=== PATIENT | female | born 1970 | race Caucasian/White ===

== ENCOUNTER 2021-02-21 12:42 | Inpatient (IN) ==
[2021-02-21] MEDS ORDERED: SODIUM CHLORIDE 0.9% 1000ML 1,000 ML IV ONE (14:45)
[2021-02-21] MEDS ORDERED: dexAMETHasone 6 MG in SYRINGE 0 ML IV ONE (15:48)
[2021-02-21 15:50] LABS: Hematocrit (blood only) 37.6 % (37-47); Hemoglobin 13.3 g/dL (12.0-16.0); Immature Granulocytes # (auto) 0.04 K/uL (0.00-0.02); Immature Granulocytes % (auto) 0.4 %; Lymphocytes # (auto) 0.67 K/uL (1.2-3.4); Lymphocytes % (auto) 7.1 %; Mean Corpuscular Hemoglobin 30.8 pg (25-34); Mean Corpuscular Hgb Conc 35.4 g/dL (32-36); Mean Platelet Volume 9.5 fL (7.4-10.4); Monocytes # (auto) 0.47 K/uL (0.11-0.59); Neutrophils # (auto) 8.29 K/uL (1.4-6.5); Neutrophils % (auto) 87.5 %; Platelet Count 429 K/uL (130-400); RDW Coefficient of Variation 12.9 % (11.5-14.5); RDW Standard Deviation 42.1 fL (36.4-46.3); Red Blood Count 4.32 M/uL (4.2-5.4); White Blood Count 9.47 K/uL (4.8-10.8)
--- NOTE | 2021-02-21 15:54 | XRay Report ---
XR chest 1V portable HISTORY: SEPSIS COMPARISON: Chest 02/19/2021. FINDINGS: No pneumothorax. No pleural effusions. The cardiac silhouette remains normal in size. Multi focal irregular airspace opacities and interstitial thickening remain unchanged. This suggests a mult ifocal viral pneumonia. IMPRESSION: No change in the interstitial thickening multifocal irregular airspace opacities. This favors a viral pneumonia. ACT 112: Negative or not required by law. Electronically signed by: Berlin Shah M.D. 02/21/2021 3:52 PM
[2021-02-21 16:00] LABS: Partial Thromboplastin Time 25.1 Seconds (21.0-31.0); Prothrombin Time 10.2 Seconds (9.0-12.0)
[2021-02-21 16:09] LABS: Alanine Aminotransferase 22 U/L (12-78); Albumin Level 2.8 gm/dl (3.4-5.0); Aspartate Aminotransferase 17 U/L (15-37); Blood Urea Nitrogen 12 mg/dl (7-18); Calcium 8.5 mg/dl (8.5-10.1); Carbon Dioxide 28 mmol/L (21-32); Chloride 102 mmol/L (98-107); Creatinine Clr Calc Pharmacy 92.4 ml/min; Est GFR (African American) 112.1; Est GFR (Non-African American) 96.7; Glucose 156 mg/dl (70-99); Magnesium 2.5 mg/dl (1.8-2.4); Potassium 3.6 mmol/L (3.5-5.1); Sodium 137 mmol/L (136-145)
[2021-02-21 16:18] LABS: Albumin Globulin Ratio 0.5 (0.9-2); Alkaline Phosphatase 64 U/L (45-117); Bilirubin,Total 0.7 mg/dl (0.2-1); Globulin 5.6 gm/dl (2.5-4.0); NT Pro B Type Natriuretic Pept 349 pg/ml (0-450); Total Protein 8.4 gm/dl (6.4-8.2); Troponin I < 0.015 ng/ml (0-0.045)
[2021-02-21] MEDS ORDERED: DEXAMETHASONE SOD INJ 4 MG/ML VIAL ONE (16:46)
--- NOTE | 2021-02-21 17:03 | CT Scan Report ---
CT ANGIOGRAPHY OF THE CHEST, PULMONARY EMBOLUS PROTOCOL CLINICAL HISTORY: Cough. Covid. COMPARISON STUDY: Chest radiograph February 21, 2021. TECHNIQUE: Following IV administration of 103 mL of Optiray, helical axial images of the chest were o btained utilizing the pulmonary embolus protocol. Maximal intensity projections and sagittal and cor onal reformats were viewed on an independent 3D workstation. IV contrast was administered without co mplication. Automated exposure control was utilized for the study. A dose lowering technique was ut ilized adhering to the principles of ALARA. CT DOSE: 462.16 mGycm FINDINGS: Extensive bilateral pulmonary emboli are noted, including emboli within the distal left pu lmonary artery extending into the left lower lobe pulmonary artery as well as the segmental branches of the left lower lobe. Multiple segmental right lower lobe pulmonary emboli are noted. Size of the h eart is normal. There is no pericardial effusion. No enlarged thoracic lymph nodes are present. There is no pneumothorax or pleural effusion. Moderate left lower lobe consolidation is noted. Extensive g roundglass opacities within the lungs are noted. There is mild interlobular septal thickening. Lungs are suboptimally assessed due to respiratory motion. Mild splenomegaly is noted. There is hepatic vivian atosis. IMPRESSION: 1. Moderate to extensive bilateral pulmonary emboli, including emboli within the distal left pulmonar y artery extending into the left lower lobe pulmonary artery and multiple segmental right lower lobe pulmonary emboli. 2. Moderate left lower lobe consolidation and extensive groundglass opacities within remainder of the lungs suggestive of viral pneumonia. 3. Hepatic steatosis. 4. Splenomegaly. ACT 112: Negative or not required by law. Electronically signed by: Adrian Polo M.D. 02/21/2021 5:02 PM
[2021-02-21] MEDS ORDERED: Heparin IV Adult Wt-Based Standard WITH Bolus Protocol IV STA (17:36)
[2021-02-21] MEDS ORDERED: HEPARIN SOD (PORCINE) 1000 UNIT/ML IV ONE (17:52)
[2021-02-21] MEDS: HEPARIN SODIUM/DEXTROSE 25,000 UNITS/500 ML BAG IV SCH (18:00)
[2021-02-21] MEDS ORDERED: PIPERACILL/TAZOBAC CONSULT ACTIVE PRN (18:38)
[2021-02-21] MEDS ORDERED: VANCOMYCIN CONSULT ACTIVE PRN (18:41)
[2021-02-21] MEDS ORDERED: VANCOMYCIN HCL 1,250 MG in SODIUM CHLORIDE 0.9% 500 ML IV SCH (18:45)
--- NOTE | 2021-02-21 19:10 | History & Physical Report ---
Date of Service February 21, 2021 Assessment & Plan (1) Pneumonia due to 2019 novel coronavirus: previously healthy 50 yo F presents 15 days after symptoms developed and 13 days after diagnosis of COVID-19 with 3 days of dyspnea and found to have a PE - admitted to PCU w/ precautions Pulmonary embolism CTA chest with mod-extensive bilateral PE including emboli of distal left pulmonary artery, moderate left lower lobe consolidations, normal heart size PESI 49 points class I very low risk, initial INR 1 EKG with incomplete RBBB, unchanged from prior - Heparin with bolus - continue to monitor for complications of PE - ECHO ordered COVID-19 infection saturation 96% on room air, afebrile, BP 169/85 - Dexamethasone 6mg QAM - Vit D daily - Zinc sulfate daily - oxygen as needed, CPAP as needed - Guaifenesin for cough - Duoneb prn - Albuterol available Secondary HAP procalcitonin negative, consolidation on CT, recent ER admission - started Vancomycin and Zosyn Hepatic steatosis seen on CTA chest - will require further outpatient evaluation Code: full Diet: regular DVT: Heparin History of Present Illness Chief Complaint: trouble breathing Primary Care Provider: DO Nguyen Jacobsen is here for trouble breathing. She developed symptoms on February 05 and tested positive for COVID-19 on the . She was seen in the ER on the and given a prescription of Dexamethasone that she started on the . She has continued to have trouble breathing that has been stable since Friday but has not improved. She has had her oxygen saturation dip as low as 76% while walking to the bathroom. She also noted pain in her shoulders and low back along with chest discomfort with deep breaths. She has also been using her alb uterol inhaler every 6 hours. She is otherwise healthy and has no known medical conditions and takes no medications prior to this illness. She was attempting to set up with a primary care provider through [facility]. She lives at home with her and 18 and 21 year old sons. She denies tobacco, ETOH and substance use. Allergies Allergy/AdvReac Type Severity Reaction Status Date / Time No Known Allergies Allergy Unverified 02/21/21 15:09 Home Medications Medication Instructions Recorded Confirmed Type albuterol sulfate 2 inh INHALATION Q6H PRN #8.5 g 02/19/21 02/21/21 Rx dexamethasone 6 mg PO DAILY #6 tab 02/19/21 02/21/21 Rx rivaroxaban [Xarelto] 15 mg PO BID 21 Days #42 tab 02/22/21 Rx rivaroxaban [Xarelto] 20 mg PO DAILY #30 tab 02/22/21 Rx Past Med/Surg History Medical History No pertinent family history Pneumonia due to 2019 novel coronavirus Surgical History No pertinent past surgical history Social History Smoking Status: Never smoker Second Hand Exposure: No; Do You Dip or Chew Tobacco: No; Tobacco Cessation Education Requested by Patient: No Hx Alcohol Use: No Hx Substance Use: No Preferred Language: Bhutanese Communication Ability: Effective 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 Beliefs That Will Affect Care: None Current Living Situation: Spouse and Family Other Information That Helps Us Care for You: No Feels Safe at Home: Yes Safety Concerns: Feels Safe At This Time Assistive Devices: Oxygen - Continuous Review of Systems Review of Systems: Constitutional: denies fevers, nausea, vomiting, diaphoresis, night sweats, weight change admits chills, fatigue, and general weakness Head: denies trauma, LOC, vision changes admits headache Neurologic: denies syncope, slurring speech, focal weakness, dysphagia ENT: admits rhinorrhea Cardiac: denies leg edema Pulm: admits pleuritic chest pain, cough GI: denies constipation, diarrhea : denies dysuria, urgency, polyuria Physical Exam Constitutional: well developed and well nourished; no acute distress Eyes: PERRL, conjunctivae normal, anicteric sclerae ENMT: external ear and nose normal, oropharynx normal Neck: normal visual inspection Respiratory: - able to speak in 3-5 word sentences - labored breathing, tachypnea - lungs clear to auscultation with no focal findings on exam Cardiovascular: RRR, no murmur, no edema Gastrointestinal (Abdomen): Inspection/Auscultation: abdomen normal to inspection; abdomen not distended Percussion/Palpation: abdomen soft; abdomen nontender, no guarding and abdomen not rigid Skin: no rashes, warm and dry Neurologic: no focal motor deficits Speech / Cognition: normal speech Psychiatric: Orientation: alert and oriented x 3 Eye Contact: good eye contact Affect: + anxious affect Results & Data Results & Data ([facility]) Vital Signs (Past 12 Hours) Vital Signs Temp Pulse Pulse Resp Resp BP Pulse Ox 02/21/21 18:31 64 24 169/85 H 96 02/21/21 18:30 54 L 27 H 95 02/21/21 18:01 76 29 H 97 02/21/21 18:00 72 23 145/102 H 98 02/21/21 17:31 28 H 97 02/21/21 17:30 25 H 139/99 95 02/21/21 17:01 22 97 02/21/21 17:00 20 132/86 96 02/21/21 15:44 100 H 26 H 02/21/21 12:45 36.5 C 90 16 95 Pulse Ox 02/21/21 18:31 02/21/21 18:30 02/21/21 18:01 02/21/21 18:00 02/21/21 17:31 02/21/21 17:30 02/21/21 17:01 02/21/21 17:00 02/21/21 15:44 88 L 02/21/21 12:45 CBC Results Results Complete Blood Count Results: RBC 4.32 M/uL (4.2-5.4) 02/21/21 WBC 9.47 K/uL (4.8-10.8) 02/21/21 Hgb 13.3 g/dL (12.0-16.0) 02/21/21 Hct 37.6 % (37-47) 02/21/21 Plt Count 429 K/uL (130-400) H 02/21/21 Chemistry (BMP) Results BMP Results: Sodium 137 mmol/L (136-145) 02/21/21 Potassium 3.6 mmol/L (3.5-5.1) 02/21/21 Chloride 102 mmol/L (98-107) 02/21/21 BUN 12 mg/dl (7-18) 02/21/21 Creatinine 0.74 mg/dl (0.6-1.2) 02/22/21 Glucose 156 mg/dl (70-99) H 04/28/21 Code Status & VTE Plan VTE Prophylaxis Plan VTE Prophylaxis will be ordered: Yes Supervising Physician Co-Signing Physician Notes Attending addendum: I have physically seen this patient, have supervised the medical residents activities, and agree with the H&P unless as otherwise noted. Assessment and Plan: Multifocal pneumonia due to COVID-19 virus with hypoxia- Consolidation left lower lobe Likely secondary bacterial component as well Placed on dexamethasone 6 mg IV every morning, Vancomycin IV and Zosyn IV per pharmacokinetic monitoring vitamin D 5000 international units IV p.o. daily Zinc sulfate turn 20 mg p.o. daily Oxygen titration goal approximately 94 to 95% Ventolin HFA 2 puffs every 2 hours as needed DuoNebs every 4 hours as needed Pulmonary embolism/moderately extensive bilaterally- Continue heparin drip per protocol Order complete echocardiogram Remaining orders and notations as noted Resident Activity Tracking Resident Involvement: Resident Care Provided Care Provided: Adult Hospital Medicine
[2021-02-21 20:16] LABS: Influenza A virus by PCR Negative (Neg); Influenza B virus by PCR Negative (Neg); RSV by PCR Negative (Neg)
[2021-02-21 20:38] LABS: SARS CoV2 RNA(COVID-19) InHosp POSITIVE (Negative)
[2021-02-21] MEDS ORDERED: guaiFENesin SUGAR FREE 100 MG/5 ML UDC PO PRN (22:08)
[2021-02-21] MEDS ORDERED: ALBUTEROL HFA 8 GM INHALER INH PRN (22:08)
[2021-02-21] MEDS ORDERED: ACETAMINOPHEN 325 MG TAB PO PRN (22:08)
[2021-02-21] MEDS ORDERED: POLYETHYLENE (MIRALAX) 17 GM PACK PO PRN (22:08)
[2021-02-21] MEDS ORDERED: ALBUT/IPRATROP 3MG/0.5MG NEB 3 ML VIAL NEB PRN (22:08)
[2021-02-21] MEDS ORDERED: VANCOMYCIN HCL 1,750 MG in SODIUM CHLORIDE 0.9% 500 ML IV ONE (22:30)
[2021-02-21] MEDS: Heparin IV Adult Wt-Based Standard WITH Bolus Protocol IV SCH ×3 (22:34→23:45)
[2021-02-21] MEDS: ZINC SULFATE 220 MG CAPSULE PO SCH (22:49)
--- NOTE | 2021-02-21 23:10 | Emergency Department Note ---
History of Present Illness General Chief Complaint: Shortness of Breath/Dyspnea Stated Complaint: sob, covid+ Time Seen by Provider: 02/21/21 14:45 History of Present Illness Provider Complaint: shortness of breath Onset (ago): week(s) (2) Severity: severe Consistency/Duration: + progressively worsening Maximum Pain Intensity: 3 Current Pain Intensity: 3 Relieved By: + rest Exacerbated By: + exertion and + coughing Context: + recent illness (Tested positive for COVID-19 on February 08, 2021) Associated symptoms: + chest pain, + pain with inspiration, + fever, + cough, + sputum production, + palpitations, + hemoptysis, + nausea/vomiting, + dizziness and + lightheadedness HPI Narrative: Patient states that she was seen in the emergency department yesterday and discharged with a home pulse oximeter. Patient states that when she walks around her home pulse oximeter goes down into the 70s. Patient states she started coughing up blood today. She states she was instructed to come back to the emergency department. Home Medications Medication Instructions Recorded Confirmed Type albuterol sulfate 2 inh INHALATION Q6H PRN #8.5 g 02/19/21 02/21/21 Rx dexamethasone 6 mg PO DAILY #6 tab 02/19/21 02/21/21 Rx Allergies Allergy/AdvReac Type Severity Reaction Status Date / Time No Known Allergies Allergy Unverified 02/21/21 15:09 Past Med/Surg History Medical History (Updated 02/21/21 @ 23:11 by Boris Alberto) No pertinent family history Pneumonia due to 2019 novel coronavirus Surgical History (Updated 02/21/21 @ 23:05 by Boris Alberto) No pertinent past surgical history Social History Smoking Status: Never smoker Second Hand Exposure: No; Do You Dip or Chew Tobacco: No; Tobacco Cessation Education Requested by Patient: No Hx Alcohol Use: No Hx Substance Use: No Preferred Language: [place] Communication Ability: Effective Train Braker Required: No Beliefs That Will Affect Care: None Current Living Situation: Spouse and Family Other Information That Helps Us Care for You: No Feels Safe at Home: Yes Safety Concerns: Feels Safe At This Time Review of Systems A total of 10 systems reviewed and were otherwise negative Physical Exam Vital Signs: Vital Signs - 24 hr 02/21/21 12:45 02/21/21 15:44 02/21/21 17:00 Temperature 36.5 C Temperature Source Oral Pulse Rate 90 Pulse Rate [Exerci ses] 100 H Pulse Rate from Sp O2 Sensor 72 Pulse Rhythm Regular Pulse Strength Normal Respiratory Rate 16 20 Respiratory Rate [ Exercises] 26 H Respiratory Effort / Characteristics Non-Labored Respiratory Depth Normal Respiratory Patter n Regular Blood Pressure 132/86 Blood Pressure Kavita n 101 Blood Pressure Pos ition Sitting Pulse Oximetry 95 96 Pulse Oximetry [Ex ercises] 88 L Oxygen Delivery Me thod Room Air Room Air Sepsis Recent Feve r Within 48 Hours No Sepsis New/Unexpla ined Change in Men catracho Status N/A Sepsis Action Take n by Nursing No Action Required 02/21/21 17:01 02/21/21 17:30 02/21/21 17:31 Temperature Temperature Source Pulse Rate Pulse Rate [Exerci ses] Pulse Rate from Sp O2 Sensor 79 69 69 Pulse Rhythm Pulse Strength Respiratory Rate 22 25 H 28 H Respiratory Rate [ Exercises] Respiratory Effort / Characteristics Respiratory Depth Respiratory Patter n Blood Pressure 139/99 Blood Pressure Kavita n 112 Blood Pressure Pos ition Pulse Oximetry 97 95 97 Pulse Oximetry [Ex ercises] Oxygen Delivery Me thod Sepsis Recent Feve r Within 48 Hours Sepsis New/Unexpla ined Change in Men catracho Status Sepsis Action Take n by Nursing 02/21/21 18:00 02/21/21 18:01 Temperature Temperature Source Pulse Rate 72 76 Pulse Rate [Exerci ses] Pulse Rate from Sp O2 Sensor 71 76 Pulse Rhythm Pulse Strength Respiratory Rate 23 29 H Respiratory Rate [ Exercises] Respiratory Effort / Characteristics Respiratory Depth Respiratory Patter n Blood Pressure 145/102 H Blood Pressure Kavita n 116 Blood Pressure Pos ition Pulse Oximetry 98 97 Pulse Oximetry [Ex ercises] Oxygen Delivery Me thod Sepsis Recent Feve r Within 48 Hours Sepsis New/Unexpla ined Change in Men catracho Status Sepsis Action Take n by Nursing Physical Exam: Physical Exam GENERAL: She is oriented to person, place, and time. She appears well-developed and well-nourished. She does not appear distressed. HENT: Exam performed. -Head: Normocephalic and atraumatic. -Right Ear: External ear normal. No mastoid tenderness. -Left Ear: External ear normal. No mastoid tenderness. -Mouth/Throat: The oropharynx is clear and moist. No trismus in the jaw. No dental abscesses or uvula swelling. No oropharyngeal exudate or tonsillar abscesses. EYES: Conjunctivae and EOM are normal. Pupils are equal, round, and reactive to light. Right eye exhibits no discharge. Left eye exhibits no discharge. No scleral icterus. NECK: Normal range of motion. Neck supple. No JVD present. No spinous process tenderness present. No carotid bruit present. No rigidity. No tracheal deviation and normal range of motion present. No Brudzinski's sign and no Kernig's sign noted. CV: Normal rate, regular rhythm, normal heart sounds and intact distal pulses. There is no peripheral edema. Palpable radial pulses bue. PULM/CHEST: Rhonchi bilaterally. ABD: The abdomen is soft. Bowel sounds are normal. She has no distension. No mass is present. There is no tenderness. There is no rebound, no guarding, no Wood's sign and no tenderness at McBurney's point. Rovsig negative MUSC/SKEL: Normal range of motion. There is no peripheral edema, tenderness or deformity. LYMPH: No cervical adenopathy. NEURO: She is alert and oriented to person, place, and time. She has normal strength. No cranial nerve deficit or sensory deficit. Coordination and gait normal. GCS eye subscore is 4. GCS verbal subscore is 5. GCS motor subscore is 6. Cerebellar tests wnl. SKIN: Skin is warm and dry. She is not diaphoretic. PSYCH: She has a normal mood and affect. Behavior is normal. Judgment and thought content normal. Course Course 1445: The patient was evaluated in room C5. A complete history and physical exam was performed Cardiac monitoring: An order was placed for continuous cardiac monitoring. The monitor shows a rate of 80 with sinus rhythm Patient was seen in full airborne precautions. Patient was seen in N95's, gloves, gowns, face shield by myself and staff. 1545: On ambulation the patient's oxygen saturation on pulse oximetry decreased to 88%. Patient be treated with Decadron 6 mg IV push and will plan on admitting the patient to the hospital. 1800: Patient CTA of the chest did show bilateral PEs. Patient will be started on heparin and will admit to the [facility] hospitalist team Dr. Anderson notified. Labs are otherwise within normal limits. Administered Medications Heparin Sodium/Dextrose (Heparin Iv Adult Wt-Based Standard With Bolus Protocol) 1 ea IV Q15M PRISCILLA; Protocol Stop: 03/23/21 18:14 Last Admin: 02/21/21 22:34 Dose: Not Given Documented by: [id number] Heparin Sodium/Dextrose (Heparin Sodium/Dextrose) 25,000 units in 500 mls @ 0.02 mls/hr IV .Q24H PRISCILLA; Protocol Stop: 03/23/21 17:51 Last Admin: 02/21/21 18:00 Dose: 1,150 units/hr, 23 mls/hr Documented by: [id number] Cosigned by: [id number] Vancomycin HCl 1,750 mg/ (Sodium Chloride) 535 mls @ 200 mls/hr IV ONE ONE Stop: 02/22/21 01:10 Last Admin: 02/21/21 22:49 Dose: 200 mls/hr Documented by: [id number] Zinc Sulfate (Zinc Sulfate 220 Mg Capsule) 220 mg PO QAM PRISCILLA Stop: 03/23/21 22:07 Last Admin: 02/21/21 22:49 Dose: 220 mg Documented by: [id number] Discontinued Medications Dexamethasone (Dexamethasone Sod Inj 4 Mg/Ml Vial) Confirm Administered Dose 8 mg .ROUTE .STK-MED ONE Stop: 02/21/21 16:47 Last Admin: 02/21/21 16:59 Dose: Not Given Documented by: [id number] Heparin Sodium (Porcine) (Heparin Sod (Porcine) 1000 Unit/Ml) 1 units IV NOW ONE Stop: 02/21/21 17:53 Last Admin: 02/21/21 18:00 Dose: 5,000 units Documented by: [id number] Cosigned by: [id number] Heparin Sodium/Dextrose (Heparin Iv Adult Wt-Based Standard With Bolus Protocol) 1 ea IV NOW STA; Protocol Stop: 02/21/21 17:37 Last Admin: 02/21/21 18:00 Dose: 1 ea Documented by: [id number] Sodium Chloride (Nss 1000ml) 1,000 mls @ 999 mls/hr IV .Q1H1M ONE Stop: 02/21/21 15:45 Last Infusion: 02/21/21 18:01 Dose: 0 mls/hr Documented by: [id number] Admin: 02/21/21 16:59 Dose: 999 mls/hr Documented by: [id number] Dexamethasone 6 mg/ Syringe 1.5 mls @ 1 mls/min IV ONE ONE Stop: 02/21/21 15:49 Last Admin: 02/21/21 16:59 Dose: 1 mls/min Documented by: [id number] Medical Decision Making Laboratory Data Result diagrams: 02/21/21 15:39 02/21/21 15:39 Lab Results 02/21/21 02/21/21 02/21/21 Range/Units 15:39 15:39 15:39 WBC 9.47 (4.8-10.8) K/uL RBC 4.32 (4.2-5.4) M/uL Hgb 13.3 (12.0-16.0) g/dL Hct 37.6 (37-47) % MCV 87.0 (80-100) fL MCH 30.8 (25-34) pg MCHC 35.4 (32-36) g/dL RDW Std Deviation 42.1 (36.4-46.3) fL RDW Coeff of Derrick 12.9 (11.5-14.5) % Plt Count 429 H (130-400) K/uL MPV 9.5 (7.4-10.4) fL Immature Gran % (Auto) 0.4 % Neut % (Auto) 87.5 % Lymph % (Auto) 7.1 % [place] % (Auto) 5.0 % Eos % (Auto) 0.0 % Baso % (Auto) 0.0 % Neut # (Auto) 8.29 H (1.4-6.5) K/uL Lymph # (Auto) 0.67 L (1.2-3.4) K/uL [place] # (Auto) 0.47 (0.11-0.59) K/uL Eos # (Auto) 0.00 (0-0.5) K/uL Baso # (Auto) 0.00 (0-0.2) K/uL Immature Gran # (Auto) 0.04 H (0.00-0.02) K/uL PT (9.0-12.0) Seconds INR (0.9-1.1) APTT (21.0-31.0) Seconds PTT Ratio Sodium 137 (136-145) mmol/L Potassium 3.6 (3.5-5.1) mmol/L Chloride 102 (98-107) mmol/L Carbon Dioxide 28 (21-32) mmol/L Anion Gap 7.0 (3-11) BUN 12 (7-18) mg/dl Creatinine 0.73 (0.6-1.2) mg/dl Est Cr Clr Drug Dosing 92.4 ml/min Est GFR ( Amer) 112.1 Est GFR (Non-Af Amer) 96.7 BUN/Creatinine Ratio 16.0 (10-20) Glucose 156 H (70-99) mg/dl Lactate (0.4-2.0) mmol/L Calcium 8.5 (8.5-10.1) mg/dl Magnesium 2.5 H (1.8-2.4) mg/dl Total Bilirubin 0.7 (0.2-1) mg/dl AST 17 (15-37) U/L ALT 22 (12-78) U/L Alkaline Phosphatase 64 (45-117) U/L Troponin I < 0.015 (0-0.045) ng/ml NT-Pro-B Natriuret Pep 349 (0-450) pg/ml Total Protein 8.4 H (6.4-8.2) gm/dl Albumin 2.8 L (3.4-5.0) gm/dl Globulin 5.6 H (2.5-4.0) gm/dl Albumin/Globulin Ratio 0.5 L (0.9-2) Procalcitonin 0.19 (0-0.5) ng/ml 02/21/21 02/21/21 Range/Units 15:39 15:39 WBC (4.8-10.8) K/uL RBC (4.2-5.4) M/uL Hgb (12.0-16.0) g/dL Hct (37-47) % MCV (80-100) fL MCH (25-34) pg MCHC (32-36) g/dL RDW Std Deviation (36.4-46.3) fL RDW Coeff of Derrick (11.5-14.5) % Plt Count (130-400) K/uL MPV (7.4-10.4) fL Immature Gran % (Auto) % Neut % (Auto) % Lymph % (Auto) % [place] % (Auto) % Eos % (Auto) % Baso % (Auto) % Neut # (Auto) (1.4-6.5) K/uL Lymph # (Auto) (1.2-3.4) K/uL [place] # (Auto) (0.11-0.59) K/uL Eos # (Auto) (0-0.5) K/uL Baso # (Auto) (0-0.2) K/uL Immature Gran # (Auto) (0.00-0.02) K/uL PT 10.2 (9.0-12.0) Seconds INR 1.0 (0.9-1.1) APTT 25.1 (21.0-31.0) Seconds PTT Ratio 1.0 Sodium (136-145) mmol/L Potassium (3.5-5.1) mmol/L Chloride (98-107) mmol/L Carbon Dioxide (21-32) mmol/L Anion Gap (3-11) BUN (7-18) mg/dl Creatinine (0.6-1.2) mg/dl Est Cr Clr Drug Dosing ml/min Est GFR ( Amer) Est GFR (Non-Af Amer) BUN/Creatinine Ratio (10-20) Glucose (70-99) mg/dl Lactate 1.1 (0.4-2.0) mmol/L Calcium (8.5-10.1) mg/dl Magnesium (1.8-2.4) mg/dl Total Bilirubin (0.2-1) mg/dl AST (15-37) U/L ALT (12-78) U/L Alkaline Phosphatase (45-117) U/L Troponin I (0-0.045) ng/ml NT-Pro-B Natriuret Pep (0-450) pg/ml Total Protein (6.4-8.2) gm/dl Albumin (3.4-5.0) gm/dl Globulin (2.5-4.0) gm/dl Albumin/Globulin Ratio (0.9-2) Procalcitonin (0-0.5) ng/ml Imaging Data Radiologist's Impression: Chest CTA 02/21/21 14:46 CT ANGIOGRAPHY OF THE CHEST, PULMONARY EMBOLUS PROTOCOL CLINICAL HISTORY: Cough. Covid. COMPARISON STUDY: Chest radiograph February 21, 2021. TECHNIQUE: Following IV administration of 103 mL of Optiray, helical axial images of the chest were obtained utilizing the pulmonary embolus protocol. Maximal intensity projections and sagittal and coronal reformats were viewed on an independent 3D workstation. IV contrast was administered without complication. Automated exposure control was utilized for the study. A dose lowering technique was utilized adhering to the principles of ALARA. CT DOSE: 462.16 mGycm FINDINGS: Extensive bilateral pulmonary emboli are noted, including emboli within the distal left pulmonary artery extending into the left lower lobe pulmonary artery as well as the segmental branches of the left lower lobe. Multiple segmental right lower lobe pulmonary emboli are noted. Size of the heart is normal. There is no pericardial effusion. No enlarged thoracic lymph no vane are present. There is no pneumothorax or pleural effusion. Moderate left lower lobe consolidation is noted. Extensive groundglass opacities within the lungs are noted. There is mild interlobular septal thickening. Lungs are suboptimally assessed due to respiratory motion. Mild splenomegaly is noted. There is hepatic steatosis. IMPRESSION: 1. Moderate to extensive bilateral pulmonary emboli, including emboli within the distal left pulmonary artery extending into the left lower lobe pulmonary artery and multiple segmental right lower lobe pulmonary emboli. 2. Moderate left lower lobe consolidation and extensive groundglass opacities within remainder of the lungs suggestive of viral pneumonia. 3. Hepatic steatosis. 4. Splenomegaly. ACT 112: Negative or not required by law. Electronically signed by: Adrian Polo M.D. 02/21/2021 5:02 PM Chest X-Ray 02/21/21 14:46 XR chest 1V portable HISTORY: SEPSIS COMPARISON: Chest 02/19/2021. FINDINGS: No pneumothorax. No pleural effusions. The cardiac silhouette remains normal in size. Multifocal irregular airspace opacities and interstitial thickening remain unchanged. This suggests a multifocal viral pneumonia. IMPRESSION: No change in the interstitial thickening multifocal irregular airspace opacities. This favors a viral pneumonia. ACT 112: Negative or not required by law. Electronically signed by: Berlin Shah M.D. 02/21/2021 3:52 PM ECG Data Interpretation: Sinus rhythm with rate of 79. WI QRS and QTc intervals within normal limits. No ST elevation or ST depression. [facility] Narrative 1445: The patient was evaluated in room C5. A complete history and physical exam was performed Cardiac monitoring: An order was placed for continuous cardiac monitoring. The monitor shows a rate of 80 with sinus rhythm Patient was seen in full airborne precautions. Patient was seen in N95's, gloves, gowns, face shield by myself and staff. 1545: On ambulation the patient's oxygen saturation on pulse oximetry decreased to 88%. Patient be treated with Decadron 6 mg IV push and will plan on admitting the patient to the hospital. 1800: Patient CTA of the chest did show bilateral PEs. Patient will be started on heparin and will admit to the [place] Hospitalist team Dr. Anderson notified. Labs are otherwise within normal limits. Impression & Plan Pulmonary embolism, COVID-19, Hypoxia Critical Care Time Critical Care Time: Yes Total Critical Care Time: 49 I have personally spent greater than 49 minutes of critical care time in the direct management of this patient. This includes bedside care, interpretation of diagnostic studies, and testing, discussion with consultants, patient, and family members, and other required patient management activities. This 49 minutes is in excess of all separately billable procedures. Discharge Plan Visit Data Chief Complaint: Shortness of Breath/Dyspnea Stated Complaint: sob, covid+ ED Provider: Boris Alberto Discharge Problem: Pulmonary embolism, COVID-19, Hypoxia Patient Disposition: Admitted As Inpatient Discharge Instructions Interventions: ED Discharge Assessment Last Done: 02/21/21 21:02 Discharge Problem: Pulmonary embolism Qualifiers: Pulmonary embolism type: unspecified Chronicity: acute Acute cor pulmonale presence: without acute cor pulmonale Qualified Code(s): I26.99 - Other pulmonary embolism without acute cor pulmonale
[2021-02-21] MEDS: PIPERACILLIN/TAZOBACTAM 3.375 GM in DEXTROSE 5% 100 ML IV SCH (23:27)
[2021-02-22] MEDS: Heparin IV Adult Wt-Based Standard WITH Bolus Protocol IV SCH ×9 (01:23→03:22)
[2021-02-22 04:56] LABS: Partial Thromboplastin Ratio 2.4
[2021-02-22 05:04] LABS: Partial Thromboplastin Time 62.6 Seconds (21.0-31.0)
[2021-02-22] MEDS: PIPERACILLIN/TAZOBACTAM 3.375 GM in DEXTROSE 5% 100 ML IV SCH (06:19)
[2021-02-22] MEDS: ZINC SULFATE 220 MG CAPSULE PO SCH (08:20)
[2021-02-22] MEDS: dexAMETHasone 6 MG in SYRINGE 0 ML IV SCH (08:20)
[2021-02-22] MEDS: ERGOCALCIFEROL 50,000 UNITS 1250 MCG CAP PO SCH (08:21)
[2021-02-22] MEDS ORDERED: VANCOMYCIN HCL 1,250 MG in SODIUM CHLORIDE 0.9% 250 ML IV STA (08:27)
--- NOTE | 2021-02-22 08:59 | Hospitalist Progress Note ---
Date of Service February 22, 2021 Assessment & Plan (1) Pulmonary embolism: likely due to COVID 19 infection and hypercoagulable state significant clot burden on the left, larger branches of pulmonary artery bilateral clots will keep on heparin drip for another 48 hours to ensure she is stable plan to transition to Xarelto and discharge home on Friday as long as she remains stable (2) Pneumonia due to 2019 novel coronavirus: some consolidation in the left lower lobe sick for over two weeks, no true hypoxemia, does desaturate when walking, 94% at rest continue dexamethasone 6mg IV daily, was started on PO dexamethasone 02/20 so today is day 3 at this point she should not develop severe pneumonia would not need to isolate on discharge stay well hydrated and well nourished (3) COVID-19: see above, sick since 16 days ago, unsure how she got it (4) Dyspnea on exertion: due to COVID pneumonia as well as bilateral PE reports she was desaturating at home will check ambulatory pulse ox prior to discharge to see if she needs oxygen on exertion Admission and Anticipated Discharge Date Admission Date: February 21, 2021 Subjective patient doing well, saturations 98% on 1L, took her off oxygen and she is 94% at rest some mild chest discomfort but no pain, has a cough with intermittent sputum, small amounts of sputum eating and drinking well, making urine, no BM for two days has been sick with COVID for over 2 weeks, tested positive 14 days ago, started dexamethasone [address] scan, reviewed labs doubtful of bacterial pneumonia, will stop antibiotics Review of Systems Review of Systems: All systems reviewed & are unremarkable except as noted in Subjective Constitutional: no fever, no sweats, no fatigue and no weakness Respiratory: + cough, + dyspnea on exertion and + sputum production; no dyspnea and no hemoptysis Cardiovascular: + chest pain (discomfort); no palpitations and no edema Gastrointestinal: + constipation; no abdominal pain, no nausea, no vomiting and no diarrhea/loose stools Physical Exam Constitutional: WD/WN, vitals as above Neck: trachea midline, no thyromegaly Respiratory: normal respiratory effort, lungs clear to auscultation Cardiovascular: RRR, no murmur, no edema Gastrointestinal (Abdomen): normal bowel sounds, soft, nontender, no hepatosplenomegaly Musculoskeletal: no cyanosis or clubbing, extremities motor strength 5/5 Skin: no rashes, warm and dry Neurologic: patellar DTR's 2+ bilat, sensation intact and PERRL, EOMI, accommodation nl, no face palsy, no dysarthria Psychiatric: A+Ox3, euthymic affect Lymphatic: no cervical or axillary lymphadenopathy Results & Data Results & Data ([facility]) Vital Signs (Past 12 Hours) Vital Signs Temp Pulse Pulse Resp BP BP Pulse Ox 02/22/21 07:51 37.0 C 65 18 119/67 97 02/22/21 03:47 36.8 C 67 18 129/71 98 02/21/21 22:26 54 L 02/21/21 22:10 36.7 C 90 20 141/83 H 94 02/21/21 21:01 55 L 22 151/88 H 95 02/21/21 21:00 53 L 24 Laboratory Results Laboratory Results - last 24 hr 02/21/21 02/21/21 02/21/21 15:39 15:39 15:39 WBC 9.47 RBC 4.32 Hgb 13.3 Hct 37.6 MCV 87.0 MCH 30.8 MCHC 35.4 RDW Std Deviation 42.1 RDW Coeff of Derrick 12.9 Plt Count 429 H MPV 9.5 Immature Gran % (Auto) 0.4 Neut % (Auto) 87.5 Lymph % (Auto) 7.1 [place] % (Auto) 5.0 Eos % (Auto) 0.0 Baso % (Auto) 0.0 Neut # (Auto) 8.29 H Lymph # (Auto) 0.67 L [place] # (Auto) 0.47 Eos # (Auto) 0.00 Baso # (Auto) 0.00 Immature Gran # (Auto) 0.04 H PT INR APTT PTT Ratio Sodium 137 Potassium 3.6 Chloride 102 Carbon Dioxide 28 Anion Gap 7.0 BUN 12 Creatinine 0.73 Est Cr Clr Drug Dosing 92.4 Est GFR ( Amer) 112.1 Est GFR (Non-Af Amer) 96.7 BUN/Creatinine Ratio 16.0 Glucose 156 H Lactate Calcium 8.5 Magnesium 2.5 H Total Bilirubin 0.7 AST 17 ALT 22 Alkaline Phosphatase 64 Troponin I < 0.015 NT-Pro-B Natriuret Pep 349 Total Protein 8.4 H Albumin 2.8 L Globulin 5.6 H Albumin/Globulin Ratio 0.5 L Procalcitonin 0.19 COVID-19 Eval Order SARS-CoV-2 (PCR) Influenza Type A (PCR) Influenza Type B (PCR) RSV (RT-PCR) 02/21/21 02/21/21 02/21/21 15:39 15:39 18:52 WBC RBC Hgb Hct MCV MCH MCHC RDW Std Deviation RDW Coeff of Derrick Plt Count MPV Immature Gran % (Auto) Neut % (Auto) Lymph % (Auto) [place] % (Auto) Eos % (Auto) Baso % (Auto) Neut # (Auto) Lymph # (Auto) [place] # (Auto) Eos # (Auto) Baso # (Auto) Immature Gran # (Auto) PT 10.2 INR 1.0 APTT 25.1 PTT Ratio 1.0 Sodium Potassium Chloride Carbon Dioxide Anion Gap BUN Creatinine Est Cr Clr Drug Dosing Est GFR ( Amer) Est GFR (Non-Af Amer) BUN/Creatinine Ratio Glucose Lactate 1.1 Calcium Magnesium Total Bilirubin AST ALT Alkaline Phosphatase Troponin I NT-Pro-B Natriuret Pep Total Protein Albumin Globulin Albumin/Globulin Ratio Procalcitonin COVID- Eval Order CovFluRsv at [facility] SARS-CoV-2 (PCR) Influenza Type A (PCR) Influenza Type B (PCR) RSV (RT-PCR) 02/21/21 02/22/21 02/22/21 18:52 04:08 08:37 WBC RBC Hgb Hct MCV MCH MCHC RDW Std Deviation RDW Coeff of Derrick Plt Count MPV Immature Gran % (Auto) Neut % (Auto) Lymph % (Auto) [place] % (Auto) Eos % (Auto) Baso % (Auto) Neut # (Auto) Lymph # (Auto) [place] # (Auto) Eos # (Auto) Baso # (Auto) Immature Gran # (Auto) PT INR APTT 62.6 H* PTT Ratio 2.4 Sodium Potassium Chloride Carbon Dioxide Anion Gap BUN Creatinine Pending Est Cr Clr Drug Dosing Pending Est GFR ( Amer) Pending Est GFR (Non-Af Amer) Pending BUN/Creatinine Ratio Glucose Lactate Calcium Magnesium Total Bilirubin AST ALT Alkaline Phosphatase Troponin I NT-Pro-B Natriuret Pep Total Protein Albumin Globulin Albumin/Globulin Ratio Procalcitonin COVID-19 Eval Order SARS-CoV-2 (PCR) POSITIVE A* Influenza Type A (PCR) Negative Influenza Type B (PCR) Negative RSV (RT-PCR) Negative Medications Administered Current Inpatient Medications Acetaminophen (Acetaminophen 325 Mg Tab) 650 mg PO Q4H PRN PRN Reason: Pain or Fever Stop: 03/23/21 22:07 Albuterol (Albuterol Hfa 8 Gm Inhaler) 2 puffs INH Q6H PRN PRN Reason: shortness of breath or wheezing Stop: 03/23/21 22:07 Albuterol (Albut/Ipratrop 3mg/0.5mg Neb 3 Ml Vial) 3 ml NEB Q4R PRN PRN Reason: Cough Stop: 03/23/21 22:07 Ergocalciferol (Ergocalciferol 50,000 Units 1250 Mcg Cap) 50,000 units PO DAILY PRISCILLA Stop: 03/24/21 08:59 Last Admin: 02/22/21 08:21 Dose: 50,000 units Documented by: Guaifenesin (Guaifenesin Sugar Free 100 Mg/5 Ml Udc) 100 mg PO Q6H PRN PRN Reason: Cough Stop: 03/23/21 22:07 Heparin Sodium/Dextrose (Heparin Sodium/Dextrose) 25,000 units in 500 mls @ 23 mls/hr IV .[id number] [facility]; Protocol Stop: 03/23/21 17:51 Last Titration: 02/22/21 07:02 Dose: 1,150 units/hr, 23 mls/hr Documented by: Dexamethasone 6 mg/ Syringe 1.5 mls @ 1 mls/min IV Q24H PRISCILLA Stop: 03/24/21 06:59 Last Admin: 02/22/21 08:20 Dose: 1 mls/min Documented by: Vancomycin HCl 1,250 mg/ (Sodium Chloride) 275 mls @ 200 mls/hr IV NOW STA Stop: 02/22/21 09:49 Polyethylene Glycol (Polyethylene (Miralax) 17 Gm Pack) 17 gm PO DAILY PRN PRN Reason: Constipation Stop: 03/23/21 22:07 Zinc Sulfate (Zinc Sulfate 220 Mg Capsule) 220 mg PO QAM [facility] Stop: 03/23/21 22:07 Last Admin: 02/22/21 08:20 Dose: 220 mg Documented by: PG Care Time/CCT Total # of Minutes Spent Total Time Spent with Patient: Total time spent is greater than 50% in coordination of care (as documented) at patient's floor/unit and/or counseling patient: Coding Level of Care Code 98025 Subseq Hosp Care Lvl 2 Diagnoses Pulmonary embolism I26.99 Acute cor pulmonale presence: without acute cor pulmonale Chronicity: acute Pulmonary embolism type: unspecified Pneumonia due to 2019 novel coronavirus U07.1; J12.82 COVID-19 U07.1 Dyspnea on exertion R06.00 (1) Pulmonary embolism Acute cor pulmonale presence: without acute cor pulmonale Chronicity: acute Pulmonary embolism type: unspecified Qualified Code(s): I26.99 - Other pulmonary embolism without acute cor pulmonale
[2021-02-22 09:20] LABS: Creatinine Clr Calc Pharmacy 92.8 ml/min; Est GFR (African American) 110.3; Est GFR (Non-African American) 95.1
[2021-02-22] MEDS: HEPARIN SODIUM/DEXTROSE 25,000 UNITS/500 ML BAG IV SCH (16:25)
--- NOTE | 2021-02-22 20:04 | Electrocardiogram Report ---
Test Reason : Blood Pressure : / mmHG Vent. Rate : 079 BPM Atrial Rate : 079 BPM P-R Int : 188 ms QRS Dur : 096 ms QT Int : 400 ms P-R-T Axes : 045 015 035 degrees QTc Int : 458 ms Normal sinus rhythm Incomplete right bundle branch block Borderline ECG When compared with ECG of 19-FEB-2021 11:18, No significant change was found Confirmed by Christ Fraga ([id number]) on 02/22/2021 8:04:01 PM Referred By: REFERRED SELF Confirmed By:Christ Fraga
--- NOTE | 2021-02-23 06:36 | Billing Data ---
Date of Service February 23, 2021 Coding Level of Care Code 40218 Initial Inpt Care Lvl 3
[2021-02-23] MEDS: dexAMETHasone 6 MG in SYRINGE 0 ML IV SCH (07:31)
[2021-02-23] MEDS: ZINC SULFATE 220 MG CAPSULE PO SCH (07:32)
[2021-02-23] MEDS: ERGOCALCIFEROL 50,000 UNITS 1250 MCG CAP PO SCH (07:32)
[2021-02-23 07:40] LABS: Creatinine Clr Calc Pharmacy 82.9 ml/min; Est GFR (African American) 97.4; Partial Thromboplastin Time 77.7 Seconds (21.0-31.0)
--- NOTE | 2021-02-23 11:49 | Hospitalist Progress Note ---
Date of Service February 23, 2021 Assessment & Plan (1) Pulmonary embolism: likely due to COVID 19 infection and hypercoagulable state significant clot burden on the left, larger branches of pulmonary artery bilateral clots will keep on heparin drip for another 24 hours to ensure she is stable plan to transition to Xarelto 15mg BID and discharge home on Friday as long as she remains stable Xarelto scripts sent to her pharmacy already, will give her discount cards would label this provoked PE due to COVID so would expect her to only need 6 months of Xarelto (2) Pneumonia due to 2019 novel coronavirus: some consolidation in the left lower lobe sick for over two weeks, no true hypoxemia, does desaturate when walking, 94% at rest continue dexamethasone 6mg IV daily, was started on PO dexamethasone 02/20 so today is day 4 at this point she should not develop severe pneumonia would not need to isolate on discharge stay well hydrated and well nourished (3) COVID-19: see above, sick since 17 days ago, unsure how she got it (4) Dyspnea on exertion: due to COVID pneumonia as well as bilateral PE reports she was desaturating at home will check ambulatory pulse ox prior to discharge to see if she needs oxygen on exertion Admission and Anticipated Discharge Date Admission Date: February 21, 2021 Subjective patient doing well, her breathing is a lot better she was OOB in the chair this morning, eating well, making urine no fever/chills, no chest discomfort she does have a little bit of blood streaked sputum but no major hemoptysis discussed plan for discharge tomorrow morning, she agrees with going home after morning dose of Xarelto she had some questions about COVID and quarantine, she had symptoms on 02/05 so she should no longer be contagious Review of Systems Review of Systems: All systems reviewed & are unremarkable except as noted in Subjective Respiratory: + cough and + hemoptysis (scant); no chest congestion, no dyspnea, no dyspnea on exertion and no pain with cough Physical Exam Constitutional: WD/WN, vitals as above Neck: trachea midline, no thyromegaly Respiratory: normal respiratory effort, lungs clear to auscultation Cardiovascular: RRR, no murmur, no edema Gastrointestinal (Abdomen): normal bowel sounds, soft, nontender, no hepatosplenomegaly Musculoskeletal: no cyanosis or clubbing, extremities motor strength 5/5 Skin: no rashes, warm and dry Neurologic: patellar DTR's 2+ bilat, sensation intact and PERRL, EOMI, accommodation nl, no face palsy, no dysarthria Psychiatric: A+Ox3, euthymic affect Lymphatic: no cervical or axillary lymphadenopathy Results & Data Results & Data ([facility]) Vital Signs (Past 12 Hours) Vital Signs Temp Pulse Pulse Resp BP Pulse Ox 02/23/21 10:52 36.5 C 50 L 18 107/48 L 95 02/23/21 07:32 36.6 C 70 18 103/64 92 02/23/21 04:22 36.8 C 62 18 119/64 91 02/22/21 23:59 52 L 02/22/21 23:50 36.8 C 53 L 16 116/64 93 Laboratory Results Laboratory Results - last 24 hr 02/23/21 02/23/21 02/23/21 06:06 06:06 06:15 APTT 77.7 H* PTT Ratio 3.0 Creatinine 0.82 Est Cr Clr Drug Dosing 82.9 Est GFR ( Amer) 97.4 Est GFR (Non-Af Amer) 84.0 Nasal Screen MRSA (PCR) Negative Medications Administered Current Inpatient Medications Acetaminophen (Acetaminophen 325 Mg Tab) 650 mg PO Q4H PRN PRN Reason: Pain or Fever Stop: 03/23/21 22:07 Last Admin: 02/23/21 07:31 Dose: 650 mg Documented by: Albuterol (Albuterol Hfa 8 Gm Inhaler) 2 puffs INH Q6H PRN PRN Reason: shortness of breath or wheezing Stop: 03/23/21 22:07 Albuterol (Albut/Ipratrop 3mg/0.5mg Neb 3 Ml Vial) 3 ml NEB Q4R PRN PRN Reason: Cough Stop: 03/23/21 22:07 Ergocalciferol (Ergocalciferol 50,000 Units 1250 Mcg Cap) 50,000 units PO DAILY PRISCILLA Stop: 03/24/21 08:59 Last Admin: 02/23/21 07:32 Dose: 50,000 units Documented by: Guaifenesin (Guaifenesin Sugar Free 100 Mg/5 Ml Udc) 100 mg PO Q6H PRN PRN Reason: Cough Stop: 03/23/21 22:07 Heparin Sodium/Dextrose (Heparin Sodium/Dextrose) 25,000 units in 500 mls @ 22 mls/hr IV .[id number] [facility]; Protocol Stop: 03/23/21 17:51 Last Titration: 02/23/21 07:54 Dose: 1,100 units/hr, 22 mls/hr Documented by: Dexamethasone 6 mg/ Syringe 1.5 mls @ 1 mls/min IV Q24H [facility] Stop: 03/24/21 06:59 Last Admin: 02/23/21 07:31 Dose: 1 mls/min Documented by: Polyethylene Glycol (Polyethylene (Miralax) 17 Gm Pack) 17 gm PO DAILY PRN PRN Reason: Constipation Stop: 03/23/21 22:07 Zinc Sulfate (Zinc Sulfate 220 Mg Capsule) 220 mg PO QAM [facility] Stop: 03/23/21 22:07 Last Admin: 02/23/21 07:32 Dose: 220 mg Documented by: PG Care Time/CCT Total # of Minutes Spent Total Time Spent with Patient: Total time spent is greater than 50% in coordination of care (as documented) at patient's floor/unit and/or counseling patient: Coding Level of Care Code 45792 Subseq Hosp Care Lvl 2 Diagnoses Pulmonary embolism I26.99 Acute cor pulmonale presence: without acute cor pulmonale Chronicity: acute Pulmonary embolism type: unspecified Pneumonia due to 2019 novel coronavirus U07.1; J12.82 COVID-19 U07.1 Dyspnea on exertion R06.00 (1) Pulmonary embolism Acute cor pulmonale presence: without acute cor pulmonale Chronicity: acute Pulmonary embolism type: unspecified Qualified Code(s): I26.99 - Other pulmonary embolism without acute cor pulmonale
[2021-02-23 14:58] LABS: Partial Thromboplastin Ratio 2.3
[2021-02-23 15:24] LABS: Partial Thromboplastin Time 60.1 Seconds (21.0-31.0)
[2021-02-23] MEDS: HEPARIN SODIUM/DEXTROSE 25,000 UNITS/500 ML BAG IV SCH (15:41)
[2021-02-24] MEDS: dexAMETHasone 6 MG in SYRINGE 0 ML IV SCH (06:07)
[2021-02-24 07:16] LABS: Creatinine Clr Calc Pharmacy 91.8 ml/min; Est GFR (African American) 108.5; Est GFR (Non-African American) 93.6
[2021-02-24 07:20] LABS: Partial Thromboplastin Ratio 3.2
[2021-02-24 07:25] LABS: Partial Thromboplastin Time 83.1 Seconds (21.0-31.0)
[2021-02-24] MEDS: ZINC SULFATE 220 MG CAPSULE PO SCH (08:48)
[2021-02-24] MEDS: ERGOCALCIFEROL 50,000 UNITS 1250 MCG CAP PO SCH (08:48)
[2021-02-24] MEDS ORDERED: RIVAROXABAN 15 MG TAB PO SCH (09:00)
--- NOTE | 2021-02-24 10:42 | Discharge Summary ---
Date of Service February 24, 2021 Admission HPI Per Admitting Provider Nguyen Banerjee is here for trouble breathing. She developed symptoms on February 05 and tested positive for COVID-19 on the . She was seen in the ER on the and given a prescription of Dexamethasone that she started on the . She has continued to have trouble breathing that has been stable since Friday but has not improved. She has had her oxygen saturation dip as low as 76% while walking to the bathroom. She also noted pain in her shoulders and low back along with chest discomfort with deep breaths. She has also been using her albuterol inhaler every 6 hours. She is otherwise healthy and has no known medical conditions and takes no medications prior to this illness. She was attempting to set up with a primary care provider through [facility]. She lives at home with her and 18 and 21 year old sons. She denies tobacco, ETOH and substance use. Principal Diagnosis Bilateral pulmonary emboli Discharge Exam Constitutional WD/WN, vitals as above Neck trachea midline, no thyromegaly Respiratory normal respiratory effort, lungs clear to auscultation Cardiovascular RRR, no murmur, no edema Gastrointestinal (Abdomen) normal bowel sounds, soft, nontender, no hepatosplenomegaly Musculoskeletal no cyanosis or clubbing, extremities motor strength 5/5 Skin no rashes, warm and dry Neurologic patellar DTR's 2+ bilat, sensation intact and PERRL, EOMI, accommodation nl, no face palsy, no dysarthria Psychiatric A+Ox3, euthymic affect Lymphatic no cervical or axillary lymphadenopathy Discharge Data Allergies Allergy/AdvReac Type Severity Reaction Status Date / Time No Known Allergies Allergy Unverified 02/21/21 15:09 Consultations 02/21/21 23:08 ED Decision to Admit Stat Ordered Studies 02/21/21 14:46 CT angio chest PE protocol Stat Hospital Course (1) Pulmonary embolism: likely due to COVID 19 infection and hypercoagulable state significant clot burden on the left, larger branches of pulmonary artery bilateral clots treated with heparin drip for 72 hours, stable heart rate and blood pressure plan to transition to Xarelto 15mg BID x 21 days and then 20mg daily first dose of Xarelto 15mg on 02/24 in the morning Xarelto scripts sent to her pharmacy already, will give her discount cards would label this provoked PE due to COVID so would expect her to only need 6 months of Xarelto (2) Pneumonia due to 2019 novel coronavirus: some consolidation in the left lower lobe sick for over two weeks, no true hypoxemia, does desaturate when walking, 94% at rest continue dexamethasone 6mg IV daily, was started on PO dexamethasone 02/20 so today is day 5 finish 5 more days at home at this point she should not develop severe pneumonia would not need to isolate on discharge stay well hydrated and well nourished (3) COVID-19: see above, sick since 18 days ago, unsure how she got it (4) Dyspnea on exertion: due to COVID pneumonia as well as bilateral PE reports she was desaturating at home 2 step today, she needed 2L on exertion only, arranged for home oxygen Total Time Total Time Spent Total Time Spent (In Minutes): 33 Total Time Includes: Examination of the Patient, Discharge Planning and M edication Reconciliation Discharge Plan Discharge Items Patient Disposition: Home - Self-Care Reason For Visit: PE Discharge Diagnosis: Bilateral pulmonary embolism COVID 19 infection Condition on Discharge: Good Goals: continue on Xarelto for PE treatment titrate off oxygen complete course of dexamethasone Activity: Resume your previous activity Driving/Machine Use: No limitations Weightbearing: Full weightbearing Non-emergency contact: Primary Care Provider Call non-emergency contact if: you have any medication questions and your symptoms worsen Follow-up/Referrals: Raven Joseph DO [Primary Care Provider] - (7-10 days) Diet: Regular Addtl Attending Provider Instructions: Medications: - XARELTO: 15mg twice a day for 21 days, next dose is due this evening, then after 21 days transition to 20mg daily in the evening - DEXAMETHASONE: finish course of 6mg daily, you need 5 more days as you were started on 02/20 by your PCP Pulmonary emboli, bilateral, likely provoked by COVID 19 infection and hypercoagulable state treated for 72 hours on heparin drip to ensure stability, vitals have been stable, no oxygen needed at rest changed to Xarelto 15mg twice a day this morning, see above for instructions as we discussed, would consider this to be PROVOKED pulmonary emboli, due to COVID, so would need 6 months of treatment use oxygen on exertion, 2L nasal canula, anticipate you will only need for about a week follow up with PCP in 7-10 days COVID 19: no evidence of pneumonia on CT chest, only showed the blood clots finish course of dexamethasone, 5 more days you are safe to be around family and friends and you do not need to stay isolated, your symptoms started on 02/05 Pending Studies at Discharge: No Stand-Alone Forms: My [facility], Work/School Release (Inpt), Smoking Cessation Medications and DC Order Prescriptions: New Xarelto 15 mg tablet 15 mg PO BID 21 Days Qty: 42 RF: 0 Xarelto 20 mg tablet 20 mg PO DAILY Qty: 30 RF: 5 Continued dexamethasone 6 mg tablet 6 mg PO DAILY Qty: 6 RF: 0 Discontinued albuterol sulfate 90 mcg/actuation HFA aerosol inhaler 2 inh inhalation Q6H PRN (Reason: shortness of breath or wheezing) Qty: 8.5 RF: 0 Discharge Orders: Discharge Order (Routine); Ordered 02/24/21 Ordered By: Wilmer Li Admission Data Admit Date/Time: 02/21/21 18:24 Attending Provider: Wilmer Li Admit Provider: Dorian Jordan Primary Care Provider: Raven Joseph Other Providers: Shawn Gomez Coding Level of Care Code D/C Day Management >30 mins Diagnoses Pulmonary embolism I26.99 Acute cor pulmonale presence: without acute cor pulmonale Chronicity: acute Pulmonary embolism type: unspecified Pneumonia due to 2019 novel coronavirus U07.1; J12.82 COVID-19 U07.1 Dyspnea on exertion R06.00
== END 2021-02-24 13:25 | disposition home or self-care (01) | DRG 177 ==
LOC: ED 12:42 → 2E 18:24 → SUATTDRO 18:24 → 2E 21:02